=== PATIENT | male | born 1935 | race Caucasian/White ===

== ENCOUNTER 2016-10-09 12:58 | Observation (INO) | payer OTHER ==
[2016-10-09] MEDS ORDERED: LABETALOL HYDROCHLORIDE 5 MG/ML SOL IV ONE ×2 (13:28)
[2016-10-09] MEDS ORDERED: SODIUM CHLORIDE 0.9% FLUSH 10 ML SOL IV PRN (13:35)
[2016-10-09 13:36] LABS: BASOPHILS % (AUTO) 1 % (0-3); EOSINOPHILS % (AUTO) 2 % (0-9); HEMATOCRIT 39 % (39-53); MEAN CORPUSCULAR HGB CONC 34.7 gm/dl (32.0-36.0); MEAN CORPUSCULAR VOLUME 88 fL (80-100); NEUTROPHILS % (AUTO) 62.7 % (37-80)
[2016-10-09 13:59] LABS: CALCIUM 8.5 mg/dl (8.5-10.1); GLOM FILT RATE 65 mL/min (>60); POTASSIUM 4.2 mMol/L (3.5-5.1); SODIUM 143 mMol/L (136-145)
[2016-10-09] MEDS ORDERED: HYDRALAZINE HYDROCHLORIDE 20 MG/ML SOL IV PRN ×2 (14:20→15:36)
[2016-10-09] MEDS ORDERED: HYDRALAZINE HYDROCHLORIDE 10 MG TAB ONE (14:25)
[2016-10-09] MEDS ORDERED: HYDRALAZINE HYDROCHLORIDE 20 MG/ML SOL ONE (14:33)
[2016-10-09] MEDS ORDERED: WARFARIN SODIUM 6 MG TAB PO SCH (19:15)
[2016-10-09] MEDS: FUROSEMIDE 40 MG TAB PO SCH (19:33)
[2016-10-09] MEDS: HYDROCORTISONE 1% CREAM 1 APPL CRE TOP SCH (20:33)
[2016-10-09] MEDS: CARVEDILOL 12.5 MG TAB PO SCH (20:33)
[2016-10-09] MEDS: ALLOPURINOL 100 MG TAB PO SCH (20:33)
[2016-10-09] MEDS ORDERED: LABETALOL HYDROCHLORIDE 100 MG TAB PO ONE (20:38)
[2016-10-09] MEDS ORDERED: FERROUS GLUCONATE 324 MG TAB PO SCH (21:00)
[2016-10-09] MEDS ORDERED: FERROUS GLUCONATE 324 MG PO SCH (21:00)
[2016-10-09] MEDS ORDERED: ATORVASTATIN CALCIUM 80 MG TAB PO SCH (21:00)
[2016-10-09] MEDS ORDERED: OMEPRAZOLE 20 MG CAPSULE PO SCH (21:00)
[2016-10-10 06:03] VITALS: RESP 18
[2016-10-10] MEDS ORDERED: HUMALOG PEN 100 U/ML SC SCH (07:00)
[2016-10-10] MEDS ORDERED: LEVOTHYROXINE SODIUM 50 MCG TAB PO SCH (07:00)
[2016-10-10] MEDS ORDERED: GLIPIZIDE 5 MG TAB PO SCH (07:30)
[2016-10-10 08:16] VITALS: BP 161/101; PULSE 66; TEMP 98.3; O2SAT 98
[2016-10-10] MEDS ORDERED: SENNOSIDES A AND B 8.6 MG TAB PO SCH (09:00)
[2016-10-10] MEDS ORDERED: LISINOPRIL 20 MG TAB PO SCH (09:00)
[2016-10-10] MEDS ORDERED: POTASSIUM CHLORIDE 10 MEQ TER PO SCH (09:00)
[2016-10-10] MEDS ORDERED: ISOSORBIDE MONONITRATE 30 MG TER PO SCH (09:00)
[2016-10-10] MEDS ORDERED: ASPIRIN EC 81 MG PO SCH (09:00)
[2016-10-10] MEDS ORDERED: FERROUS SULFATE 325 MG TAB PO SCH (09:00)
[2016-10-10] MEDS ORDERED: PANTOPRAZOLE SODIUM 40 MG ECT PO SCH (09:00)
[2016-10-10] MEDS ORDERED: THIAMINE 100 MG TAB PO SCH (09:00)
[2016-10-10] MEDS ORDERED: ASPIRIN 81 MG CHEWABLE CTB ONE (09:14)
[2016-10-10] MEDS ORDERED: GLIPIZIDE 2.5 MG TER ONE (09:15)
[2016-10-10] MEDS: CARVEDILOL 12.5 MG TAB PO SCH (09:17)
[2016-10-10] MEDS: FUROSEMIDE 40 MG TAB PO SCH (09:18)
[2016-10-10] MEDS: HYDROCORTISONE 1% CREAM 1 APPL CRE TOP SCH (09:21)
[2016-10-10] MEDS: ALLOPURINOL 100 MG TAB PO SCH (09:21)
[2016-10-11] MEDS ORDERED: WARFARIN SODIUM 4 MG TAB PO SCH (18:00)
== END 2016-10-10 12:30 | DRG 305 ==
LOC: ED 12:58 → ACUTE CARE 16:19
PROVIDERS: ADMIT Emergency Medicine; ATTEND Emergency Medicine
DX: I16.9 Hypertensive crisis, unspecified (principal); M25.512 Pain in left shoulder; R51 Headache; M25.552 Pain in left hip; W18.11XA Fall from or off toilet without subsequent striking against object, initial encounter; Z79.01 Long term (current) use of anticoagulants
CPT/HCPCS: 70450; 80048; 82962; 84484; 85025; 85610; 93005; 93012; 94762; 96374; 96375; 99217; 99218; 99285; J0360

== ENCOUNTER 2018-10-29 19:22 | Emergency (ER) | payer OTHER ==
[2018-10-29 19:32] VITALS: RESP 20
[2018-10-29 19:40] LABS: BASOPHILS % (AUTO) 1 % (0-3); EOSINOPHILS % (AUTO) 2 % (0-9); HEMATOCRIT 46 % (39-53); HEMOGLOBIN 14.6 gm/dl (13.5-17.7); LYMPHOCYTES % (AUTO) 34.5 % (10-50); MEAN CORPUSCULAR HEMOGLOBIN 28.4 pg (27.0-32.0); MEAN CORPUSCULAR HGB CONC 31.7 gm/dl (32.0-36.0); MEAN CORPUSCULAR VOLUME 89 fL (80-100); MONOCYTES % (AUTO) 4.8 % (0-12); NEUTROPHILS % (AUTO) 57.4 % (37-80)
[2018-10-29 19:47] LABS: CALCIUM 8.7 mg/dl (8.5-10.1); CARBON DIOXIDE 28.6 mEq/L (21-32); CREATININE 1.07 mg/dl (0.80-1.30); POTASSIUM 4.7 mMol/L (3.5-5.1)
[2018-10-29] MEDS ORDERED: OXYCODONE HYDROCHLORIDE 5 MG TAB PO ONE (20:40)
[2018-10-29 20:45] VITALS: TEMP 97
[2018-10-29] MEDS ORDERED: OXYBUTYNIN CHLORIDE 5 MG TAB ONE (21:06)
[2018-10-30 01:19] VITALS: BP 140/83; O2SAT 94
[2018-10-30 01:21] VITALS: PULSE 76
== END 2018-10-29 21:22 | DRG 563 ==
LOC: ED 19:22
DX: S52.501A Unspecified fracture of the lower end of right radius, initial encounter for closed fracture (principal); W19.XXXA Unspecified fall, initial encounter; S09.90XA Unspecified injury of head, initial encounter; S00.81XA Abrasion of other part of head, initial encounter; R40.2362 Coma scale, best motor response, obeys commands, at arrival to emergency department; R40.2142 Coma scale, eyes open, spontaneous, at arrival to emergency department; R40.2252 Coma scale, best verbal response, oriented, at arrival to emergency department; Z79.01 Long term (current) use of anticoagulants; E11.9 Type 2 diabetes mellitus without complications
CPT/HCPCS: 29125; 70450; 73110; 80048; 85025; 85610; 99283; 99285; G0390; A9270-GY

== ENCOUNTER → 2018-11-06 | Day surgery (SDC) | payer OTHER ==
[~2018-11-06] MED LIST: BUPIVACAINE HCL 0.25% MPF 30 ML SOL INFIL ONE; BUPIVACAINE/EPI 0.5% 10 ML SOL INFIL ONE; CEFAZOLIN SODIUM 1 GM PDS IV ONE; ESMOLOL HCL 100 MG/10 ML IV ONE; FENTANYL 100MCG/2ML SOL ONE; LABETALOL HYDROCHLORIDE 5 MG/ML SOL IV ONE; METOPROLOL TARTRATE 5 MG/5 ML SOL IV ONE; MIDAZOLAM 2 MG/2 ML SOL ONE; PROPOFOL 10 MG/ML 200 MG/20 ML EMU IV ONE; PROPOFOL 500 MG/50 ML EMU IV ONE
[2018-11-06] MEDS: METOPROLOL TARTRATE 5 MG/5 ML SOL IV ONE ×2 (11:40→12:07)
[2018-11-06 13:54] VITALS: BP 175/113; PULSE 72; RESP 20; TEMP 97.7; O2SAT 92
== END | disposition home or self-care (01) | DRG 561 ==
LOC: SURG 08:04
PROVIDERS: ATTEND Orthopaedic Surgery
DX: S52.531G Colles' fracture of right radius, subsequent encounter for closed fracture with delayed healing (principal); E11.9 Type 2 diabetes mellitus without complications; M85.88 Other specified disorders of bone density and structure, other site
CPT/HCPCS: 73100; 76000; J0690; J2250; J3010; A6402; J2704; J3490

== ENCOUNTER 2018-12-18 10:01 | Outpatient (CLI) | payer OTHER ==
[2018-11-06 13:54] VITALS: O2SAT 92
== END 2018-12-18 10:02 | disposition home or self-care (01) | DRG 561 ==
LOC: CONVCARE 10:01
PROVIDERS: ATTEND Orthopaedic Surgery
DX: S52.501D Unspecified fracture of the lower end of right radius, subsequent encounter for closed fracture with routine healing (principal)
CPT/HCPCS: 73100

== ENCOUNTER 2019-01-22 11:23 | Outpatient (CLI) | payer OTHER ==
[2018-11-06 13:54] VITALS: O2SAT 92
== END 2019-01-22 11:24 | disposition home or self-care (01) | DRG 561 ==
LOC: CONVCARE 11:23
PROVIDERS: ATTEND Orthopaedic Surgery
DX: S52.501D Unspecified fracture of the lower end of right radius, subsequent encounter for closed fracture with routine healing (principal)
CPT/HCPCS: 73110